=== PATIENT | female | born 1960 | race African-American/Black ===

== ENCOUNTER 2021-09-20 13:12 | Inpatient (IN) | payer MEDICAID ==
[~2021-09-20] VITALS: Ht 162.6 cm; Wt 99.8 kg
[2021-09-20 14:29] LABS: BASOPHILS % 0.7 % (0.0-2.0); EOSINOPHILS % 0.8 % (0.0-5.0); HEMATOCRIT. 39.5 % (36.0-48.0); HEMOGLOBIN. 12.8 g/dL (12.0-16.0); LYMPHOCYTES % 20.9 % (20.0-50.0); MEAN CORPUSCULAR HEMOGLOBIN 27.3 pg (28.0-32.0); MEAN CORPUSCULAR VOLUME 84.4 fL (81.0-99.0); MEAN PLATELET VOLUME 7.1 fl (7.4-10.4); MONOCYTES % 4.8 % (2.0-8.0); NEUTROPHILS % 72.8 % (40.0-76.0); PLATELET 420 x1000/uL (130-400); RED BLOOD CELL COUNT 4.69 mill/uL (4.2-5.4); RED CELL DISTRIBUTION WIDTH 13.2 % (11.6-14.6)
[2021-09-20 14:34] LABS: CHLORIDE 104 mEq/L (98-107)
[2021-09-20] MEDS ORDERED: CEFTRIAXONE 1 G PREMIX 50 ML IV ONE (15:30)
[2021-09-21] MEDS ORDERED: DIPHENHYDRAMINE 50MG/ML VIAL IV PRN (10:45)
[2021-09-21] MEDS ORDERED: NA PHOS,M-B/NA PHOS,DI-BA ENEMA 118ML PR PRN (10:45)
[2021-09-21] MEDS ORDERED: HYDROCODONE/ACETAMINOPHEN 5/325MG TABLET PO PRN (10:45)
[2021-09-21] MEDS ORDERED: LORAZEPAM 0.5MG TABLET PO PRN (10:45)
[2021-09-21] MEDS ORDERED: CLONIDINE 0.1MG TABLET PO PRN (10:45)
[2021-09-21] MEDS ORDERED: CEFTRIAXONE 1 G PREMIX 50 ML IV SCH (10:45)
[2021-09-21] MEDS ORDERED: ACETAMINOPHEN 650MG SUPP PR PRN (10:45)
[2021-09-21] MEDS ORDERED: GUAIFENESIN 200MG/10ML SUGAR FREE UDC PO PRN (10:45)
[2021-09-21] MEDS ORDERED: ONDANSETRON HCL 4MG/2ML INJ IV PRN (10:45)
[2021-09-21] MEDS ORDERED: MAGNESIUM/ALUMINUM HYDROXIDE/SIMETHICONE 30ML UDC PO PRN (10:45)
[2021-09-21] MEDS ORDERED: DOCUSATE SODIUM 100MG CAPSULE PO PRN (10:45)
[2021-09-21] MEDS ORDERED: NALOXONE HCL 0.4MG/ML VIAL IV PRN (11:30)
[2021-09-21 11:42] LABS: BG BASE EXCESS 2.4 mmol/L (-2.0-2.0); BG CARBOXYHEMOGLOBIN 0.2 % (0.5-1.5); BG DEOXYHEMOGLOBIN 3.7 % (0.0-5.0); BG FRACTION INSPIRED OXYGEN 21; BG HCO3 ACT 27.6 mmol/L (22.0-26.0); BG METHEMOGLOBIN 0.3 % (0.0-1.5); BG OXYGEN SATURATION 96.3 % (92.0-98.5); BG OXYHEMOGLOBIN 95.8 % (94.0-97.0); BG PCO2 44.8 mmHg (35.0-45.0); BG PH 7.407 (7.350-7.450); BG PO2 81.7 mmHg (75.0-100.0); BG SAMPLE SITE RIGHT RADIAL; BG TOTAL HEMOGLOBIN 12.4 g/dL (12.0-18.0); BG VENT MODE ROOM AIR
[2021-09-21] MEDS ORDERED: ALBUTEROL 6.7GM HFA INHALER ORI SCH (12:00)
[2021-09-21] MEDS: ENOXAPARIN 40MG/0.4ML SYR SUBCUT SCH (14:14)
[2021-09-21] MEDS: DEXAMETHASONE 10 MG/ML VIAL IV SCH (14:15)
[2021-09-21] MEDS: AZITHROMYCIN 500 MG in DEXT 5% WATER 250 ML IV SCH (14:20)
[2021-09-21] MEDS ORDERED: CEFTRIAXONE 1,000 MG in DEXTROSE 5% WATER 50 ML IV SCH (16:00)
[2021-09-21] MEDS ORDERED: CEFTRIAXONE SODIUM 1 G/VIAL ONE ×2 (16:38→23:32)
[2021-09-21 18:17] LABS: INR 1.1
[2021-09-21 18:31] LABS: CREATINE KINASE 126 IU/L (26-192)
[2021-09-21 18:33] LABS: CREATINE KINASE MB FRACTION < 1.0 ng/mL (0.5-3.6)
[2021-09-21] MEDS ORDERED: FAMOTIDINE 20MG TABLET PO SCH (21:00)
[2021-09-21 22:21] LABS: HEPATITIS B SURFACE ANTIGEN NEGATIVE
[2021-09-21 22:38] LABS: CREATINE KINASE 108 IU/L (26-192)
[2021-09-21 22:39] LABS: CREATINE KINASE MB FRACTION < 1.0 ng/mL (0.5-3.6)
[2021-09-21] MEDS: ACETAMINOPHEN 325MG TABLET PO PRN (23:44)
[2021-09-22] MEDS: ACETAMINOPHEN 325MG TABLET PO PRN (05:06)
[2021-09-22 08:10] VITALS: BP 136/64
[2021-09-22] MEDS: DEXAMETHASONE 10 MG/ML VIAL IV SCH (09:10)
[2021-09-22] MEDS ORDERED: HYDR-4001 MT (09:56)
[2021-09-22 11:11] LABS: BG BASE EXCESS 3.8 mmol/L (-2.0-2.0); BG CARBOXYHEMOGLOBIN 0.3 % (0.5-1.5); BG DEOXYHEMOGLOBIN 5.1 % (0.0-5.0); BG FRACTION INSPIRED OXYGEN 21; BG HCO3 ACT 28.4 mmol/L (22.0-26.0); BG OXYGEN SATURATION 94.9 % (92.0-98.5); BG OXYHEMOGLOBIN 94.6 % (94.0-97.0); BG PCO2 42.7 mmHg (35.0-45.0); BG PO2 71.1 mmHg (75.0-100.0); BG SAMPLE SITE RIGHT RADIAL; BG TOTAL HEMOGLOBIN 12.3 g/dL (12.0-18.0); BG VENT MODE ROOM AIR
[2021-09-22 11:52] VITALS: BP 149/85
[2021-09-22] MEDS: AZITHROMYCIN 500 MG in DEXT 5% WATER 250 ML IV SCH (12:28)
[2021-09-22] MEDS: ENOXAPARIN 40MG/0.4ML SYR SUBCUT SCH (12:29)
[2021-09-22] MEDS ORDERED: IOHEXOL-300 100 ML BOTTLE ONE (12:30)
[2021-09-22] MEDS ORDERED: FLUT1DIS3 INH (12:36)
[2021-09-22] MEDS ORDERED: ALBU18HF2 IH (12:36)
[2021-09-22 13:29] VITALS: BP 149/85
[2021-09-22 13:45] LABS: BASOPHILS % 0.4 % (0.0-2.0); HEMATOCRIT. 35.3 % (36.0-48.0); HEMOGLOBIN. 11.6 g/dL (12.0-16.0); LYMPHOCYTES % 11.7 % (20.0-50.0); MEAN CORPUSCULAR HEMOGLOBIN 27.8 pg (28.0-32.0); MEAN CORPUSCULAR VOLUME 84.6 fL (81.0-99.0); MEAN PLATELET VOLUME 7.1 fl (7.4-10.4); MONOCYTES % 1.9 % (2.0-8.0); PLATELET 397 x1000/uL (130-400); RED BLOOD CELL COUNT 4.17 mill/uL (4.2-5.4); RED CELL DISTRIBUTION WIDTH 13.2 % (11.6-14.6)
[2021-09-22 14:01] VITALS: BP 149/85
[2021-09-22 14:20] LABS: CHLORIDE 104 mEq/L (98-107)
[2021-09-22 14:27] LABS: LDL CHOLESTEROL 95 mg/dL (5-100)
[2021-09-22 14:28] LABS: HDL CHOLESTEROL 60 mg/dL (40-59)
[2021-09-23 06:10] LABS: HIV SCREEN 4G Non Reactive (Non Reactive)
[2021-09-23] MEDS ORDERED: AZITHROMYCIN 500 MG TABLET PO SCH (09:00)
== END 2021-09-22 16:20 | disposition home or self-care (01) | DRG 137 ==
LOC: ER 13:12 → MICUSO 17:23 → 7WST 09-22 08:38
PROVIDERS: ADMIT Internal Medicine; ATTEND Internal Medicine
DX: U07.1 COVID-19 (principal); J12.82 Pneumonia due to coronavirus disease 2019; M19.90 Unspecified osteoarthritis, unspecified site; I10 Essential (primary) hypertension; R06.03 Acute respiratory distress; R91.8 Other nonspecific abnormal finding of lung field; R73.9 Hyperglycemia, unspecified; Z87.891 Personal history of nicotine dependence; Z79.899 Other long term (current) drug therapy
CPT/HCPCS: 36415; 36600; 71045; 71260; 80053; 80061; 82375; 82550; 82553; 82728; 82805; 83615; 84145; 84443; 84484; 85025; 86140; 86705; 86709; 86803; 87340; 87389; 87426; 93005; 93970; 99285; J0456; J0696; J1100; J1650; J7040; J7060; Q9967